=== PATIENT | male | born 1970 | race Caucasian/White ===

== ENCOUNTER 2017-01-20 19:24 | Emergency (ER) | payer BC, MEDICARE ==
[~2017-01-20 19:24] MED LIST: BETAMETHASONE D0.051 TP; CARVEDILOL3.125 MG PO; COLACE100 M1 PO; D-1000 185 MG-11 TAB PO; DILAUDID 2MG TAB2 MG PO; DIPROLENE TOP; ELIDEL1% TOP; FENTANYL T100 MCG/HR TD; FLONASE ALLERG9.9 ML; GOOD NEIGHBOR P1 T32 PO; INSULIN-HUMA100 U/ML SC; JUICE PLUS WIT240 ML SQ; K-DUR20 MEQ PO; LANTUS100 U/ML SQ; LASIX40 M1 PO; LEXAPRO 10MG10 MG PO; LISINOPRIL20 MG PO; LISINOPRIL30 MG PO; LYRICA 25MG CAP25 MG PO; MIRALAX17 GM PO; NIZORAL CREAM15 GM; NUCYNTA ER50 MG PO; PHENERGAN 25 TA25 MG PO; POTASSIUM CH2 MEQ/ML PO; PRAVASTATIN SOD40 MG PO; REGLAN 10MG10 MG/TAB PO; REVATIO20 MG PO; TYLENOL 325MG325 MG PO; VALIUM 5MG T5 MG/TAB PO; VALIUM5 M1 PO; VALIUM5 MG PO; XANAX0.5 MG PO; XANAX1 M1 PO; ZANTAC150 MG PO; ZESTRIL 20MG TA20 MG PO; ZYRTEC ALLERGY10 MG PO; ZYRTEC10 M3 PO; ZYRTEC10 MG PO
[2017-01-20] MEDS ORDERED: DILAUDID2 M1 PO (19:25)
[2017-01-20] MEDS ORDERED: ADVIL 200MG TA200 MG PO (19:25)
[2017-01-20] MEDS ORDERED: ROBAXIN500 MG PO (19:29)
[2017-01-20] MEDS ORDERED: NIZORAL CREAM15 GM TOP (19:29)
[2017-01-20] MEDS ORDERED: COZAAR 50MG50 MG/TAB PO (19:29)
[2017-01-20] MEDS ORDERED: PROTONIX TR40 M1 PO (19:30)
[2017-01-20] MEDS ORDERED: PANCRELIPASE PO (19:31)
[2017-01-20] MEDS ORDERED: REVATIO20 MG PO (19:32)
[2017-01-20] MEDS ORDERED: ALDACTONE25 M1 PO (19:32)
[2017-01-20] MEDS ORDERED: PHENERGAN 25 TA25 MG PO (19:32)
[2017-01-20] MEDS ORDERED: COUMADIN3 MG PO (19:33)
[2017-01-20] MEDS ORDERED: CHANTIX 1MG1 MG PO (19:33)
[2017-01-20] MEDS ORDERED: ORPHENADRINE C100 MG PO (21:57)
== END 2017-01-20 22:41 | disposition home or self-care (01) ==
LOC: ED 19:24
DX: M62.838 Other muscle spasm (principal); Z87.891 Personal history of nicotine dependence
CPT/HCPCS: J2270; J2360; J2550; J7030

== ENCOUNTER 2017-05-30 16:52 | Emergency (ER) | payer BC ==
[~2017-05-30] VITALS: Ht 188 cm; Wt 91.0 kg
[~2017-05-30 16:52] MED LIST changes: +ADVIL 200MG TA200 MG PO; +ALDACTONE25 M1 PO; +CHANTIX 1MG1 MG PO; +COUMADIN3 MG PO; +COZAAR 50MG50 MG/TAB PO; +DILAUDID2 M1 PO; +NIZORAL CREAM15 GM TOP; +ORPHENADRINE C100 MG PO; +PANCRELIPASE PO; +PROTONIX TR40 M1 PO; +ROBAXIN500 MG PO
[2017-05-30] MEDS ORDERED: COZAAR 50MG50 MG/TAB PO (17:16)
[2017-05-30] MEDS ORDERED: CEPHALEXIN500 M1 PO (19:39)
[2017-05-30] MEDS ORDERED: SEPTRA DS 8001 TAB PO (19:39)
[2017-05-30 20:12] VITALS: BP 167/88
== END 2017-05-30 20:12 | disposition home or self-care (01) ==
LOC: ED 16:52
DX: L03.116 Cellulitis of left lower limb (principal); E11.621 Type 2 diabetes mellitus with foot ulcer; L97.529 Non-pressure chronic ulcer of other part of left foot with unspecified severity; E11.42 Type 2 diabetes mellitus with diabetic polyneuropathy; Z79.4 Long term (current) use of insulin; Z79.01 Long term (current) use of anticoagulants

== ENCOUNTER → 2017-06-16 | Outpatient (CLI) | payer BC ==
[2017-05-30 20:12] VITALS: BP 167/88
[~2017-06-16] MED LIST changes: +BACTRIM DS TAB1 EACH PO; +CEFADROXIL500 MG PO; +CEPHALEXIN500 M1 PO; +SEPTRA DS 8001 TAB PO
== END ==
LOC: RAD 12:00
DX: L97.529 Non-pressure chronic ulcer of other part of left foot with unspecified severity (principal); L03.032 Cellulitis of left toe; Z89.422 Acquired absence of other left toe(s); M25.475 Effusion, left foot

== ENCOUNTER 2017-07-15 00:36 | Emergency (ER) | payer BC ==
[~2017-07-15] VITALS: Ht 185.4 cm; Wt 85.5 kg
[~2017-07-15 00:36] MED LIST changes: -BACTRIM DS TAB1 EACH PO; -CEFADROXIL500 MG PO
[2017-07-15] MEDS ORDERED: CEFADROXIL500 MG PO (00:53)
[2017-07-15] MEDS ORDERED: BACTRIM DS TAB1 EACH PO (05:36)
[2017-07-15 05:46] VITALS: BP 141/81
== END 2017-07-15 05:42 | disposition home or self-care (01) ==
LOC: ED 00:36
DX: D72.819 Decreased white blood cell count, unspecified (principal); E86.0 Dehydration; Z47.89 Encounter for other orthopedic aftercare; E10.9 Type 1 diabetes mellitus without complications; Z79.4 Long term (current) use of insulin; I10 Essential (primary) hypertension; E78.5 Hyperlipidemia, unspecified; F32.9 Major depressive disorder, single episode, unspecified; F17.200 Nicotine dependence, unspecified, uncomplicated; Z89.422 Acquired absence of other left toe(s); Z79.01 Long term (current) use of anticoagulants; Z86.19 Personal history of other infectious and parasitic diseases; K86.1 Other chronic pancreatitis; R11.0 Nausea
CPT/HCPCS: J2270; J2405; J7030

== ENCOUNTER 2017-07-25 23:00 | Emergency (ER) | payer BC ==
[~2017-07-25] VITALS: Ht 190.5 cm; Wt 85.5 kg
[~2017-07-25 23:00] MED LIST changes: +BACTRIM DS TAB1 EACH PO; +CEFADROXIL500 MG PO
[2017-07-26 04:40] VITALS: BP 130/64
== END 2017-07-26 04:40 | disposition home or self-care (01) ==
LOC: ED 23:00
DX: A04.7 Enterocolitis due to Clostridium difficile (principal); E86.9 Volume depletion, unspecified; E11.69 Type 2 diabetes mellitus with other specified complication; M86.8X7 Other osteomyelitis, ankle and foot; Z79.4 Long term (current) use of insulin; Z87.11 Personal history of peptic ulcer disease; Z90.81 Acquired absence of spleen
CPT/HCPCS: J2270; J3370; J7030; J7050

== ENCOUNTER 2017-07-26 18:04 | Outpatient (RCR) | payer BC ==
[~2017-07-26] VITALS: Ht 185.4 cm; Wt 85.5 kg
[2017-07-26 18:29] VITALS: BP 124/75
--- NOTE | 2017-07-26 18:49 | NUR ---
PT PLACED IN CDIFF PRECAUTIONS, GOWNS AND APPROPRIATE PPE PLACED OUTSIDE DOOR, BLEACH WIPES THAT "KILL CDIFF SPORES" PLACED OUTSIDE DOOR AND WILL THOROUGHLY CLEANSE PT ROOM ONCE PT IS DC'D HOME, PROVIDER AWARE THAT PATIENT HAS CDIFF AT THIS TIME
--- NOTE | 2017-07-26 18:59 | NUR ---
Pt's first dose of Vanco given in ER at 0400 this morning, will continue on an outpatient basis at 0600 & 1800 as ordered by
[2017-07-26 19:36] VITALS: BP 126/69
--- NOTE | 2017-07-26 19:38 | NUR ---
ELIZABETH BLAND, RN STATES THAT STATED HE ONLY WANTS PT ON IV VANCO UNTIL FRIDAY WHEN ORIGINAL DOCTOR PRESCRIBING PT MULTIPLE ANTIBIOTICS CAN BE REACHED AND PROVIDE FURTHER RECOMMENDATIONS FOR PATIENT CARE
[2017-07-27 06:35] VITALS: BP 135/78
--- NOTE | 2017-07-27 07:34 | NUR ---
IV ABX COMPLETE. PER DR THORNTON, 22G INT FLUSHED AND REMAINS TO L HAND. WRAPPED WITH COBAN FOR COMFORT. PT AMBULATES FROM FACILITY. ROOM 101 CLEANSED WITH CLOROX BY THIS RN THEN TERMINAL CLEAN BY HOUSEKEEPING.
[2017-07-27 07:36] VITALS: BP 112/70
[2017-07-27 18:27] VITALS: BP 156/95
[2017-07-27 20:10] VITALS: BP 137/83
[2017-07-28 06:20] VITALS: BP 122/67
[2017-07-28 07:40] VITALS: BP 129/78
[2017-07-28 18:48] VITALS: BP 147/84
--- NOTE | 2017-07-28 18:49 | NUR ---
Pt reports that he thinks he may get a PICC tomorrow. Reminded pt that we will need trough before am vanco dose - pt verbalizes understanding.
[2017-07-28 19:45] VITALS: BP 155/85
[2017-07-29 06:07] VITALS: BP 147/87
[2017-07-29 07:18] VITALS: BP 139/78
[2017-07-29 19:21] VITALS: BP 138/81
[2017-07-29 20:56] VITALS: BP 135/75
[2017-07-30 06:30] VITALS: BP 148/81
[2017-07-30 08:19] VITALS: BP 123/71
--- NOTE | 2017-07-30 08:28 | NUR ---
Dr. Roberts Nurse Ened[facility] contacted regarding patients need for PICC line placement and continuation of Vancomycin, she states the patient called her yesterday wanting these same things and that Dr. Singh is aware of request.
--- NOTE | 2017-07-30 20:18 | NUR ---
Pt arrives at this time to get IV removed, pt is starting PO Vanco instead of IV per
== END 2017-07-30 21:00 | disposition home or self-care (01) ==
LOC: AMSURD 18:04
PROVIDERS: Family Medicine
DX: A04.7 Enterocolitis due to Clostridium difficile (principal); A04.8 Other specified bacterial intestinal infections; E11.69 Type 2 diabetes mellitus with other specified complication; M86.172 Other acute osteomyelitis, left ankle and foot; Z51.81 Encounter for therapeutic drug level monitoring; Z79.2 Long term (current) use of antibiotics
CPT/HCPCS: J3370; J7050

== ENCOUNTER 2017-10-18 00:30 | Emergency (ER) | payer BC ==
[~2017-10-18] VITALS: Ht 188 cm; Wt 89.8 kg
[2017-10-18 01:54] LABS: BASO # 0.1 (0.02-0.10); EOS # 0.3 (0.04-0.40); EOS % 1.9 % (0.0-4.0); HEMATOCRIT 32.4 % (42.0-52.0); HEMOGLOBIN 10.8 g/dL (13.5-18.0); LYMPH# 3.1 (1.50-4.00); MEAN CELL VOLUME 88 fl (78-100); MEAN CORPUSCULAR HEMOGLOBIN 29 pg (27-31); MEAN CORPUSCULAR HGB CONC 33 g/dL (33-37); MEAN PLATELET VOLUME 10.5 fl (7.4-10.4); PLATELET COUNT 431 K/mm3 (130-400); RED BLOOD COUNT 3.67 M/mm3 (4.20-5.60); RED CELL DISTRIBUTION WIDTH 13.6 % (11.5-14.5); WHITE BLOOD COUNT 16.7 K/mm3 (4.8-10.8)
[2017-10-18 01:55] LABS: MONO # 1.7 (0.20-0.80); NEU # 11.3 (1.40-6.50)
[2017-10-18 01:59] LABS: ALBUMIN 3.7 g/dL (3.5-5.0); CALCIUM 9.1 mg/dL (8.4-10.2); POTASSIUM 3.7 mmol/L (3.6-5.0); TOTAL BILIRUBIN 0.6 mg/dL (0.2-1.3); TOTAL PROTEIN 7.5 g/dL (6.3-8.2)
[2017-10-18 03:08] LABS: URINE COLOR YELLOW
[2017-10-18 03:09] LABS: URINE APPEARANCE CLEAR; URINE BILIRUBIN NEGATIVE (NEGATIVE); URINE BLOOD TRACE (NEGATIVE); URINE GLUCOSE 50 mg/dL mg/dL (NEGATIVE); URINE KETONE NEGATIVE (NEGATIVE); URINE LEUKOCYTE ESTERASE TRACE (NEGATIVE); URINE NITRATE NEGATIVE (NEGATIVE); URINE PROTEIN(semi-quant) 3+ mg/dL (NEGATIVE); URINE UROBILINOGEN NORMAL (NORMAL)
[2017-10-18] MEDS ORDERED: MACROBID 100 M100 MG PO (04:19)
[2017-10-18 05:11] VITALS: BP 141/84
== END 2017-10-18 04:38 | disposition home or self-care (01) ==
LOC: ED 00:30
PROVIDERS: Family Medicine
DX: R53.81 Other malaise (principal); R51 Headache; N39.0 Urinary tract infection, site not specified; E11.9 Type 2 diabetes mellitus without complications; I10 Essential (primary) hypertension; J44.9 Chronic obstructive pulmonary disease, unspecified; Z87.11 Personal history of peptic ulcer disease; F17.200 Nicotine dependence, unspecified, uncomplicated; Z79.01 Long term (current) use of anticoagulants; Z79.4 Long term (current) use of insulin; Z87.19 Personal history of other diseases of the digestive system; L84 Corns and callosities
CPT/HCPCS: J2270; J7030

== ENCOUNTER 2018-01-06 22:53 | Emergency (ER) | payer BC ==
[~2018-01-06 22:53] MED LIST changes: +MACROBID 100 M100 MG PO
[2018-01-07 00:08] VITALS: BP 140/70
== END 2018-01-07 00:08 | disposition home or self-care (01) ==
LOC: ED 22:53
DX: Z47.81 Encounter for orthopedic aftercare following surgical amputation (principal); Z89.421 Acquired absence of other right toe(s); E11.9 Type 2 diabetes mellitus without complications; Z86.31 Personal history of diabetic foot ulcer; Z79.4 Long term (current) use of insulin; F32.9 Major depressive disorder, single episode, unspecified; Z88.5 Allergy status to narcotic agent; Z79.01 Long term (current) use of anticoagulants; Z87.11 Personal history of peptic ulcer disease

== ENCOUNTER 2018-03-20 09:00 | Outpatient (RCR) | payer BC | END 2018-03-20 09:30 | disposition home or self-care (01) | LOC: OT 09:00 | DX: R25.1 Tremor, unspecified (principal) ==

== ENCOUNTER 2018-05-06 18:33 | Outpatient (RCR) | payer BC ==
[~2018-05-06] VITALS: Ht 188 cm; Wt 83.6 kg
[2018-05-06] MEDS ORDERED: AMBIEN5 M1 PO (18:46)
[2018-05-06 19:34] VITALS: BP 124/80
[2018-05-09] MEDS ORDERED: ZOFRAN ODT4 MG PO (01:02)
[2018-05-09] MEDS ORDERED: DILAUDID2 M1 PO (01:02)
[2018-05-20 19:58] VITALS: BP 138/84
[2018-05-26 20:00] VITALS: BP 125/75
[2018-06-03 22:05] VITALS: BP 133/72
[2018-06-10 21:30] VITALS: BP 143/80
[2018-06-25 21:00] VITALS: BP 146/86
--- NOTE | 2018-06-25 21:05 | NUR ---
PICC LINE REMOVED WITHOUT DIFFICULTY, PRESSURE HELD TO SITE FOR 5 MINUTES BY NURSE, PRESSURE DRESSING APPLIED WITH 4X4 GUAZE AND COBAN, PATIENT INSTRUCTED TO LEAVE DRESSING IN PLACE FOR 24 HOURS, TO LOOSEN IT IF NUMBNESS OR DISCOLORATION OCCUR TO DISTAL ARM, PATIENT VERBALIZES UNDERSTANDING OF ALL INSTRUCTIONS, PATIENT AMBULATES OUT WITHOUT DIFFICULTY,
== END 2018-06-25 22:00 | disposition home or self-care (01) ==
LOC: AMSURD 18:33
DX: M86.8X7 Other osteomyelitis, ankle and foot (principal); B95.61 Methicillin susceptible Staphylococcus aureus infection as the cause of diseases classified elsewhere; Z45.2 Encounter for adjustment and management of vascular access device; Z95.9 Presence of cardiac and vascular implant and graft, unspecified

== ENCOUNTER 2018-05-08 22:19 | Emergency (ER) | payer BC ==
[~2018-05-08] VITALS: Ht 188 cm; Wt 80.0 kg
[~2018-05-08 22:19] MED LIST changes: +AMBIEN5 M1 PO
[2018-05-08 23:56] LABS: HEMATOCRIT 30.7 % (42.0-52.0); HEMOGLOBIN 9.8 g/dL (13.5-18.0); MEAN CELL VOLUME 88 fl (78-100); MEAN CORPUSCULAR HEMOGLOBIN 28 pg (27-31); MEAN CORPUSCULAR HGB CONC 32 g/dL (33-37); MEAN PLATELET VOLUME 9.8 fl (7.4-10.4); RED CELL DISTRIBUTION WIDTH 14.1 % (11.5-14.5); WHITE BLOOD COUNT 13.6 K/mm3 (4.8-10.8)
[2018-05-08 23:57] LABS: PLATELET COUNT 510 K/mm3 (130-400)
[2018-05-09 00:07] LABS: BUN/CREATININE RATIO 14.8 (6.0-26.0); CALCIUM 8.9 mg/dL (8.4-10.2); POTASSIUM 4.2 mmol/L (3.6-5.0)
[2018-05-09 00:13] LABS: LYMPHOCYTE 25 % (20-51); MONOCYTE 7 % (3-10); NEUTROPHILS 64 % (42-75)
[2018-05-09 00:14] LABS: PROTHROMBIN TIME 33.1 SECONDS (9.0-12.0)
[2018-05-09] MEDS ORDERED: ZOFRAN ODT4 MG PO (01:02)
[2018-05-09] MEDS ORDERED: DILAUDID2 M1 PO (01:02)
[2018-05-09 01:35] VITALS: BP 156/86
== END 2018-05-09 01:35 | disposition home or self-care (01) ==
LOC: ED 22:19
PROVIDERS: Family Medicine
DX: M84.374A Stress fracture, right foot, initial encounter for fracture (principal); E11.69 Type 2 diabetes mellitus with other specified complication; Z89.421 Acquired absence of other right toe(s); Z89.422 Acquired absence of other left toe(s); M86.8X7 Other osteomyelitis, ankle and foot; Z79.4 Long term (current) use of insulin; Z79.899 Other long term (current) drug therapy

== ENCOUNTER 2019-03-17 22:35 | Emergency (ER) | payer BC ==
[~2019-03-17 22:35] MED LIST changes: +XANAX 1MG1 MG PO; -XANAX1 M1 PO; +ZOFRAN ODT4 MG PO
[2019-03-17] MEDS ORDERED: ELIQUIS5 MG PO (23:40)
[2019-03-17] MEDS ORDERED: FENOFIBRATE145 MG PO (23:41)
[2019-03-17] MEDS ORDERED: REVATIO20 MG PO (23:46)
[2019-03-17] MEDS ORDERED: CHANTIX 1MG1 MG PO (23:47)
[2019-03-17 23:48] LABS: BASO # 0.1 (0.02-0.10); EOS # 0.4 (0.04-0.40); HEMATOCRIT 34.2 % (42.0-52.0); HEMOGLOBIN 10.8 g/dL (13.5-18.0); LYMPH# 3.6 (1.50-4.00); MEAN CELL VOLUME 90 fl (78-100); MEAN CORPUSCULAR HEMOGLOBIN 29 pg (27-31); MEAN CORPUSCULAR HGB CONC 32 g/dL (33-37); MEAN PLATELET VOLUME 11.2 fl (7.4-10.4); MONO # 1.4 (0.20-0.80); NEU # 6.8 (1.40-6.50); PLATELET COUNT 414 K/mm3 (130-400); RED BLOOD COUNT 3.79 M/mm3 (4.20-5.60); RED CELL DISTRIBUTION WIDTH 15.2 % (11.5-14.5); WHITE BLOOD COUNT 12.3 K/mm3 (4.8-10.8)
[2019-03-17] MEDS ORDERED: ATIVAN1 M1 PO (23:55)
[2019-03-18 00:13] LABS: ALBUMIN 3.2 g/dL (3.5-5.0); CALCIUM 8.7 mg/dL (8.4-10.2); POTASSIUM 3.8 mmol/L (3.6-5.0); TOTAL BILIRUBIN 0.4 mg/dL (0.2-1.3); TOTAL PROTEIN 6.9 g/dL (6.3-8.2)
[2019-03-18 00:44] LABS: URINE APPEARANCE CLEAR; URINE COLOR YELLOW
[2019-03-18 00:45] LABS: URINE BILIRUBIN NEGATIVE (NEGATIVE); URINE BLOOD 50 ery/uL (NEGATIVE); URINE KETONE NEGATIVE (NEGATIVE); URINE LEUKOCYTE ESTERASE NEGATIVE (NEGATIVE); URINE MUCUS PRESENT (NOT PRESENT); URINE NITRATE NEGATIVE (NEGATIVE); URINE PROTEIN(semi-quant) NEGATIVE (NEGATIVE); URINE UROBILINOGEN NORMAL (NORMAL)
[2019-03-18] MEDS ORDERED: AUGMENTIN 875-1 EAC1 PO (02:45)
[2019-03-18] MEDS ORDERED: CIPRODEX 0.3%-7.5 ML OT (02:45)
[2019-03-18 02:49] VITALS: BP 152/90
== END 2019-03-18 02:54 | disposition home or self-care (01) ==
LOC: ED 22:35
PROVIDERS: Physician Assistant
DX: H66.91 Otitis media, unspecified, right ear (principal); H60.91 Unspecified otitis externa, right ear; R11.2 Nausea with vomiting, unspecified; G89.29 Other chronic pain; R10.9 Unspecified abdominal pain; E10.9 Type 1 diabetes mellitus without complications; K25.9 Gastric ulcer, unspecified as acute or chronic, without hemorrhage or perforation; K86.1 Other chronic pancreatitis; F17.210 Nicotine dependence, cigarettes, uncomplicated; Z88.1 Allergy status to other antibiotic agents; Z88.5 Allergy status to narcotic agent; Z88.6 Allergy status to analgesic agent; Z90.49 Acquired absence of other specified parts of digestive tract; Z86.718 Personal history of other venous thrombosis and embolism
CPT/HCPCS: J1170; J2270; J2405; J7030; Q9967

== ENCOUNTER 2019-06-01 20:09 | Emergency (ER) | payer BC ==
[~2019-06-01 20:09] MED LIST changes: +ATIVAN1 M1 PO; +AUGMENTIN 875-1 EAC1 PO; +CIPRODEX 0.3%-7.5 ML OT; +ELIQUIS5 MG PO; +FENOFIBRATE145 MG PO
[2019-06-01] MEDS ORDERED: MORGIDOX 1X100100 MG PO (20:44)
[2019-06-01 21:34] LABS: ALBUMIN 2.7 g/dL (3.5-5.0); BASO # 0.1 (0.02-0.10); EOS # 0.3 (0.04-0.40); HEMATOCRIT 33.8 % (42.0-52.0); HEMOGLOBIN 10.7 g/dL (13.5-18.0); LYMPH# 2.9 (1.50-4.00); MEAN CELL VOLUME 90 fl (78-100); MEAN CORPUSCULAR HEMOGLOBIN 29 pg (27-31); MEAN CORPUSCULAR HGB CONC 32 g/dL (33-37); MEAN PLATELET VOLUME 11.2 fl (7.4-10.4); MONO # 1.1 (0.20-0.80); NEU # 6.3 (1.40-6.50); PLATELET COUNT 448 K/mm3 (130-400); RED BLOOD COUNT 3.76 M/mm3 (4.20-5.60); RED CELL DISTRIBUTION WIDTH 14.8 % (11.5-14.5); WHITE BLOOD COUNT 10.8 K/mm3 (4.8-10.8)
[2019-06-01 21:35] LABS: POTASSIUM 4.2 mmol/L (3.5-5.1)
[2019-06-01 21:36] LABS: CALCIUM 8.4 mg/dL (8.3-10.5)
[2019-06-01 21:37] LABS: TOTAL PROTEIN 5.7 g/dL (6.4-8.3)
[2019-06-01 21:39] LABS: TOTAL BILIRUBIN 0.3 mg/dL (0.2-1.2)
[2019-06-01 21:55] LABS: LIPASE 30 U/L (8-78)
[2019-06-02 00:07] VITALS: BP 148/87
== END 2019-06-02 00:14 | disposition home or self-care (01) ==
LOC: ED 20:09
PROVIDERS: Nurse Practitioner Family
DX: E10.65 Type 1 diabetes mellitus with hyperglycemia (principal); M54.12 Radiculopathy, cervical region; M25.512 Pain in left shoulder; E78.5 Hyperlipidemia, unspecified; K25.9 Gastric ulcer, unspecified as acute or chronic, without hemorrhage or perforation; F17.210 Nicotine dependence, cigarettes, uncomplicated; Z86.718 Personal history of other venous thrombosis and embolism; Z98.890 Other specified postprocedural states; Z90.81 Acquired absence of spleen; Z79.01 Long term (current) use of anticoagulants; Z79.4 Long term (current) use of insulin
CPT/HCPCS: J1170

== ENCOUNTER 2019-07-26 13:39 | Emergency (ER) | payer BC ==
[~2019-07-26] VITALS: Ht 188 cm; Wt 97.3 kg
[~2019-07-26 13:39] MED LIST changes: +MORGIDOX 1X100100 MG PO
[2019-07-26 14:57] LABS: HEMATOCRIT 35.7 % (42.0-52.0); HEMOGLOBIN 11.8 g/dL (13.5-18.0); MEAN CELL VOLUME 86 fl (78-100); MEAN CORPUSCULAR HEMOGLOBIN 29 pg (27-31); MEAN CORPUSCULAR HGB CONC 33 g/dL (33-37); MEAN PLATELET VOLUME 10.8 fl (7.4-10.4); PLATELET COUNT 455 K/mm3 (130-400); RED BLOOD COUNT 4.13 M/mm3 (4.20-5.60); RED CELL DISTRIBUTION WIDTH 14.4 % (11.5-14.5); WHITE BLOOD COUNT 15.1 K/mm3 (4.8-10.8)
[2019-07-26 15:06] LABS: ALBUMIN 3.1 g/dL (3.5-5.0); POTASSIUM 4.9 mmol/L (3.5-5.1)
[2019-07-26 15:08] LABS: CALCIUM 8.5 mg/dL (8.3-10.5)
[2019-07-26 15:09] LABS: TOTAL PROTEIN 7.1 g/dL (6.4-8.3)
[2019-07-26 15:11] LABS: TOTAL BILIRUBIN 0.7 mg/dL (0.2-1.2)
[2019-07-26 15:17] LABS: BAND 4 % (0-10); LYMPHOCYTE 7 % (20-51); MONOCYTE 4 % (3-10); NEUTROPHILS 85 % (42-75)
[2019-07-26 19:07] LABS: URINE APPEARANCE CLEAR; URINE BILIRUBIN NEGATIVE (NEGATIVE); URINE BLOOD TRACE (NEGATIVE); URINE COLOR YELLOW; URINE KETONE NEGATIVE (NEGATIVE); URINE LEUKOCYTE ESTERASE NEGATIVE (NEGATIVE); URINE NITRATE NEGATIVE (NEGATIVE); URINE PROTEIN(semi-quant) 2+ mg/dL (NEGATIVE); URINE UROBILINOGEN NORMAL (NORMAL)
[2019-07-26 19:08] LABS: URINE WBC 0-1 /hpf (0-3)
[2019-07-26 19:32] LABS: HEMOGLOBIN 11.9 g/dL (13.5-18.0); MEAN CELL VOLUME 87 fl (78-100); MEAN CORPUSCULAR HEMOGLOBIN 29 pg (27-31); MEAN CORPUSCULAR HGB CONC 33 g/dL (33-37); MEAN PLATELET VOLUME 10.7 fl (7.4-10.4); PLATELET COUNT 419 K/mm3 (130-400); RED BLOOD COUNT 4.15 M/mm3 (4.20-5.60); RED CELL DISTRIBUTION WIDTH 14.5 % (11.5-14.5)
[2019-07-26 19:36] LABS: ALBUMIN 2.9 g/dL (3.5-5.0); POTASSIUM 4.4 mmol/L (3.5-5.1)
[2019-07-26 19:38] LABS: CALCIUM 7.9 mg/dL (8.3-10.5)
[2019-07-26 19:39] LABS: TOTAL PROTEIN 6.7 g/dL (6.4-8.3)
[2019-07-26 19:41] LABS: TOTAL BILIRUBIN 0.8 mg/dL (0.2-1.2)
[2019-07-26 19:48] LABS: BAND 2 % (0-10); LYMPHOCYTE 10 % (20-51); MONOCYTE 6 % (3-10); NEUTROPHILS 82 % (42-75)
[2019-07-26] MEDS ORDERED: LEVAQUIN 750MG750 M1 PO (20:14)
[2019-07-26 20:18] VITALS: BP 127/61
== END 2019-07-26 20:45 | disposition home or self-care (01) ==
LOC: ED 13:39
PROVIDERS: Nurse Practitioner
DX: R11.2 Nausea with vomiting, unspecified (principal); R19.7 Diarrhea, unspecified; R50.9 Fever, unspecified; R10.9 Unspecified abdominal pain; E10.9 Type 1 diabetes mellitus without complications; I10 Essential (primary) hypertension; F32.9 Major depressive disorder, single episode, unspecified; K21.9 Gastro-esophageal reflux disease without esophagitis; Z90.49 Acquired absence of other specified parts of digestive tract; Z98.890 Other specified postprocedural states; Z90.81 Acquired absence of spleen; Z87.19 Personal history of other diseases of the digestive system; Z87.891 Personal history of nicotine dependence; Z79.01 Long term (current) use of anticoagulants
CPT/HCPCS: J1815; J2270; J2550; J7030; Q9967

== ENCOUNTER 2019-11-26 01:16 | Observation (INO) | payer BC ==
[2019-11-26] VITALS (8 sets, daily range): BP systolic 112–131; BP diastolic 63–81
[~2019-11-26] VITALS: Ht 190.5 cm; Wt 98.0 kg
[~2019-11-26 01:16] MED LIST changes: +LEVAQUIN 750MG750 M1 PO
[2019-11-26 02:25] LABS: BASO # 0.1 (0.02-0.10); EOS # 0.3 (0.04-0.40); EOS % 2.2 % (0.0-4.0); HEMATOCRIT 40.3 % (42.0-52.0); HEMOGLOBIN 13.1 g/dL (13.5-18.0); LYMPH# 2.5 (1.50-4.00); MEAN CELL VOLUME 86 fl (78-100); MEAN CORPUSCULAR HEMOGLOBIN 28 pg (27-31); MEAN CORPUSCULAR HGB CONC 33 g/dL (33-37); MEAN PLATELET VOLUME 10.5 fl (7.4-10.4); MONO # 1.4 (0.20-0.80); NEU # 7.6 (1.40-6.50); PLATELET COUNT 404 K/mm3 (130-400); RED BLOOD COUNT 4.71 M/mm3 (4.20-5.60); RED CELL DISTRIBUTION WIDTH 14.3 % (11.5-14.5); WHITE BLOOD COUNT 12.1 K/mm3 (4.8-10.8)
[2019-11-26 02:31] LABS: ALBUMIN 3.6 g/dL (3.5-5.0)
[2019-11-26 02:32] LABS: POTASSIUM 3.6 mmol/L (3.5-5.1); SODIUM 135 mmol/L (136-145)
[2019-11-26 02:33] LABS: CALCIUM 10.8 mg/dL (8.3-10.5)
[2019-11-26 02:34] LABS: GLUCOSE 194 mg/dL (75-110); TOTAL PROTEIN 8.1 g/dL (6.4-8.3)
[2019-11-26 02:35] LABS: CARBON DIOXIDE 24 mmol/L (22-29)
[2019-11-26 02:36] LABS: TOTAL BILIRUBIN 0.3 mg/dL (0.2-1.2)
[2019-11-26 02:39] LABS: AST-SGOT 33 U/L (5-34)
[2019-11-26 02:41] LABS: ALT/SGPT 28 U/L (0-55); LIPASE 36 U/L (8-78)
[2019-11-26 02:48] LABS: TROPONIN-I < 0.03 ng/mL (<0.030)
[2019-11-26] MEDS ORDERED: ELIQUIS2.5 MG PO (03:01)
[2019-11-26] MEDS ORDERED: BUMETANIDE2 M1 PO (03:02)
[2019-11-26] MEDS ORDERED: CHANTIX START M1 TAB PO (03:03)
[2019-11-26] MEDS ORDERED: CIPRODEX 0.3%-7.5 ML OT (03:04)
[2019-11-26] MEDS ORDERED: HYDROXYZINE HCL25 M1 PO (03:05)
[2019-11-26] MEDS ORDERED: MAGNESIUM OXID200 MG PO (03:06)
[2019-11-26] MEDS ORDERED: REVATIO20 MG PO (03:07)
[2019-11-26 05:52] LABS: MAGNESIUM 1.99 mg/dL (1.60-2.60)
[2019-11-26 06:10] LABS: TROPONIN-I < 0.03 ng/mL (<0.030)
[2019-11-26 06:12] LABS: URINE APPEARANCE CLEAR; URINE BILIRUBIN NEGATIVE (NEGATIVE); URINE COLOR YELLOW; URINE KETONE NEGATIVE (NEGATIVE); URINE LEUKOCYTE ESTERASE NEGATIVE (NEGATIVE); URINE NITRATE NEGATIVE (NEGATIVE); URINE PROTEIN(semi-quant) 3+ mg/dL (NEGATIVE); URINE UROBILINOGEN NORMAL (NORMAL)
[2019-11-26 06:13] LABS: URINE MUCUS PRESENT (NOT PRESENT)
[2019-11-26 13:19] LABS: HEMATOCRIT 33.7 % (42.0-52.0); HEMOGLOBIN 10.8 g/dL (13.5-18.0); MEAN CELL VOLUME 88 fl (78-100); MEAN CORPUSCULAR HEMOGLOBIN 28 pg (27-31); MEAN CORPUSCULAR HGB CONC 32 g/dL (33-37); MEAN PLATELET VOLUME 10.6 fl (7.4-10.4); PLATELET COUNT 410 K/mm3 (130-400); RED BLOOD COUNT 3.85 M/mm3 (4.20-5.60); RED CELL DISTRIBUTION WIDTH 14.4 % (11.5-14.5); WHITE BLOOD COUNT 12.1 K/mm3 (4.8-10.8)
[2019-11-26 13:26] LABS: POTASSIUM 4.6 mmol/L (3.5-5.1)
[2019-11-26 13:28] LABS: CALCIUM 8.7 mg/dL (8.3-10.5); LYMPHOCYTE 28 % (20-51); MONOCYTE 9 % (3-10); NEUTROPHILS 60 % (42-75)
[2019-11-27 01:38] VITALS: BP 125/60
[2019-11-27 05:43] VITALS: BP 120/62
[2019-11-27 08:05] LABS: POTASSIUM 4.1 mmol/L (3.5-5.1)
[2019-11-27 08:06] LABS: CALCIUM 8.4 mg/dL (8.3-10.5)
[2019-11-27 10:05] VITALS: BP 116/65
[2019-11-27 14:24] VITALS: BP 103/60
== END 2019-11-27 15:15 | disposition home or self-care (01) ==
LOC: ED 01:16 → MED/SURG 04:07
PROVIDERS: Nurse Practitioner Primary Care; ADMIT Nurse Practitioner Family
DX: R11.2 Nausea with vomiting, unspecified (principal); R53.81 Other malaise; E86.9 Volume depletion, unspecified; E10.22 Type 1 diabetes mellitus with diabetic chronic kidney disease; I12.9 Hypertensive chronic kidney disease with stage 1 through stage 4 chronic kidney disease, or unspecified chronic kidney disease; N18.9 Chronic kidney disease, unspecified; N17.9 Acute kidney failure, unspecified; Z96.41 Presence of insulin pump (external) (internal); K86.1 Other chronic pancreatitis; Z79.01 Long term (current) use of anticoagulants; Z79.899 Other long term (current) drug therapy; E78.5 Hyperlipidemia, unspecified; F41.9 Anxiety disorder, unspecified; F32.9 Major depressive disorder, single episode, unspecified; G89.29 Other chronic pain
CPT/HCPCS: G0378; J1170; J1815; J1956; J2405; J2550; J7030; Q0177

== ENCOUNTER → 2019-12-02 | Outpatient (CLI) | payer BC ==
[2019-11-27 14:24] VITALS: BP 103/60
[~2019-12-02] MED LIST changes: +BUMETANIDE2 M1 PO; +CHANTIX START M1 TAB PO; +ELIQUIS2.5 MG PO; +HYDROXYZINE HCL25 M1 PO; +MAGNESIUM OXID200 MG PO
== END ==
LOC: RAD 08:49
DX: R14.0 Abdominal distension (gaseous) (principal); R18.8 Other ascites

== ENCOUNTER 2019-12-17 15:42 | Emergency (ER) | payer BC ==
[2019-12-17 16:18] LABS: HEMATOCRIT 37.4 % (42.0-52.0); MEAN CELL VOLUME 88 fl (78-100); MEAN CORPUSCULAR HEMOGLOBIN 28 pg (27-31); MEAN CORPUSCULAR HGB CONC 32 g/dL (33-37); MEAN PLATELET VOLUME 10.3 fl (7.4-10.4); RED BLOOD COUNT 4.26 M/mm3 (4.20-5.60); RED CELL DISTRIBUTION WIDTH 14.6 % (11.5-14.5)
[2019-12-17 16:20] LABS: PLATELET COUNT 522 K/mm3 (130-400); WHITE BLOOD COUNT 20.9 K/mm3 (4.8-10.8)
[2019-12-17 16:30] LABS: ALBUMIN 3.2 g/dL (3.5-5.0); POTASSIUM 4.4 mmol/L (3.5-5.1)
[2019-12-17 16:31] LABS: CALCIUM 9.7 mg/dL (8.3-10.5); LYMPHOCYTE 13 % (20-51); MONOCYTE 10 % (3-10); NEUTROPHILS 75 % (42-75)
[2019-12-17 16:33] LABS: TOTAL PROTEIN 7.3 g/dL (6.4-8.3)
[2019-12-17 16:34] LABS: TOTAL BILIRUBIN 0.3 mg/dL (0.2-1.2)
[2019-12-17 17:39] VITALS: BP 157/89
== END 2019-12-17 17:39 | disposition home or self-care (01) ==
LOC: ED 15:42
PROVIDERS: Nurse Practitioner Primary Care
DX: I12.9 Hypertensive chronic kidney disease with stage 1 through stage 4 chronic kidney disease, or unspecified chronic kidney disease (principal); E10.22 Type 1 diabetes mellitus with diabetic chronic kidney disease; N18.9 Chronic kidney disease, unspecified

== ENCOUNTER 2021-05-26 22:38 | Emergency (ER) | payer BC ==
[2021-05-26 23:16] LABS: HEMATOCRIT 36.8 % (42.0-52.0); HEMOGLOBIN 11.5 g/dL (13.5-18.0); MEAN CELL VOLUME 95 fl (78-100); MEAN CORPUSCULAR HEMOGLOBIN 30 pg (27-31); MEAN CORPUSCULAR HGB CONC 31 g/dL (33-37); MEAN PLATELET VOLUME 9.7 fl (7.4-10.4); PLATELET COUNT 494 K/mm3 (130-400); RED BLOOD COUNT 3.86 M/mm3 (4.20-5.60); RED CELL DISTRIBUTION WIDTH 19.2 % (11.5-14.5); WHITE BLOOD COUNT 15.3 K/mm3 (4.8-10.8)
[2021-05-26 23:20] LABS: BAND 2 % (0-10); LYMPHOCYTE 35 % (20-51); MONOCYTE 4 % (3-10); NEUTROPHILS 55 % (42-75)
[2021-05-26 23:21] LABS: ALBUMIN 3.4 g/dL (3.5-5.0)
[2021-05-26 23:23] LABS: CALCIUM 9.6 mg/dL (8.3-10.5)
[2021-05-26 23:24] LABS: TOTAL PROTEIN 7.5 g/dL (6.4-8.3)
[2021-05-26 23:26] LABS: TOTAL BILIRUBIN 0.4 mg/dL (0.2-1.2)
[2021-05-26 23:35] LABS: POTASSIUM 4.4 mmol/L (3.5-5.1)
[2021-05-26] MEDS ORDERED: NOVOLOG FLEX100 U/ML SQ (23:50)
[2021-05-26] MEDS ORDERED: PROAIR HFA0.09 MG/AC IH (23:50)
[2021-05-26] MEDS ORDERED: FENTANYL1 EAC3 TD (23:50)
[2021-05-26] MEDS ORDERED: HUMULIN R500 UNIT/1 SQ (23:50)
[2021-05-27 01:11] VITALS: BP 152/68
== END 2021-05-27 01:20 | disposition home or self-care (01) ==
LOC: ED 22:38
PROVIDERS: Family Medicine
DX: E10.649 Type 1 diabetes mellitus with hypoglycemia without coma (principal); E88.81 Metabolic syndrome and other insulin resistance; F17.200 Nicotine dependence, unspecified, uncomplicated; Z88.6 Allergy status to analgesic agent; Z79.4 Long term (current) use of insulin

== ENCOUNTER 2021-08-27 17:25 | Emergency (ER) | payer BC ==
[~2021-08-27] VITALS: Ht 188 cm; Wt 100.9 kg
[~2021-08-27 17:25] MED LIST changes: +FENTANYL1 EAC3 TD; +HUMULIN R500 UNIT/1 SQ; +NOVOLOG FLEX100 U/ML SQ; +PROAIR HFA0.09 MG/AC IH
[2021-08-27 18:46] LABS: ALBUMIN 3.4 g/dL (3.5-5.0); BASO # 0.13 (0.02-0.10); EOS # 0.42 (0.04-0.40); EOS % 3.3 % (0.0-4.0); HEMATOCRIT 29.4 % (42.0-52.0); HEMOGLOBIN 8.8 g/dL (13.5-18.0); MEAN CELL VOLUME 94 fl (78-100); MEAN CORPUSCULAR HEMOGLOBIN 28 pg (27-31); MEAN CORPUSCULAR HGB CONC 30 g/dL (33-37); MEAN PLATELET VOLUME 9.6 fl (7.4-10.4); MONO # 1.12 (0.20-0.80); NEU # 7.38 (1.40-6.50); RED BLOOD COUNT 3.12 M/mm3 (4.20-5.60); RED CELL DISTRIBUTION WIDTH 17.2 % (11.5-14.5); WHITE BLOOD COUNT 12.6 K/mm3 (4.8-10.8)
[2021-08-27 18:48] LABS: CALCIUM 10.1 mg/dL (8.3-10.5)
[2021-08-27 18:51] LABS: TOTAL BILIRUBIN 0.3 mg/dL (0.2-1.2)
[2021-08-27 19:06] LABS: PLATELET COUNT 550 K/mm3 (130-400)
[2021-08-27 19:43] LABS: URINE APPEARANCE CLEAR; URINE BILIRUBIN NEGATIVE (NEGATIVE); URINE BLOOD NEGATIVE (NEGATIVE); URINE COLOR YELLOW; URINE GLUCOSE NEGATIVE (NEGATIVE); URINE KETONE NEGATIVE (NEGATIVE); URINE LEUKOCYTE ESTERASE NEGATIVE (NEGATIVE); URINE MUCUS PRESENT (NOT PRESENT); URINE NITRATE NEGATIVE (NEGATIVE); URINE PROTEIN(semi-quant) 1+ mg/dL (NEGATIVE); URINE UROBILINOGEN NORMAL (NORMAL); URINE WBC 0-1 /hpf (0-3)
[2021-08-27 22:18] VITALS: BP 141/82
== END 2021-08-27 22:18 | disposition home or self-care (01) ==
LOC: ED 17:25
PROVIDERS: Nurse Practitioner
DX: B34.9 Viral infection, unspecified (principal); E11.9 Type 2 diabetes mellitus without complications; Z90.49 Acquired absence of other specified parts of digestive tract; Z79.4 Long term (current) use of insulin; Z20.822 Contact with and (suspected) exposure to COVID-19
CPT/HCPCS: J1170; J2405; J7040

== ENCOUNTER 2022-08-21 22:40 | Emergency (ER) | payer BC ==
[~2022-08-21] VITALS: Ht 180.3 cm; Wt 100.9 kg
[2022-08-21 23:21] LABS: EOS % 1.4 % (0.0-4.0); HEMATOCRIT 41.8 % (42.0-52.0); HEMOGLOBIN 14.3 g/dL (13.5-18.0); LYMPH# 2.72 K/mm3 (1.50-4.00); MEAN CELL VOLUME 95 fl (78-100); MEAN CORPUSCULAR HEMOGLOBIN 33 pg (27-31); MEAN CORPUSCULAR HGB CONC 34 g/dL (33-37); MEAN PLATELET VOLUME 10.9 fl (7.4-10.4); MONO # 1.06 K/mm3 (0.20-0.80); NEU # 10.39 K/mm3 (1.40-6.50); PLATELET COUNT 322 K/mm3 (130-400); RED BLOOD COUNT 4.39 M/mm3 (4.20-5.60); RED CELL DISTRIBUTION WIDTH 12.6 % (11.5-14.5); WHITE BLOOD COUNT 14.6 K/mm3 (4.8-10.8)
[2022-08-21 23:25] LABS: ALBUMIN 3.3 g/dL (3.5-5.0); POTASSIUM 4.4 mmol/L (3.5-5.1); SODIUM 128 mmol/L (136-145)
[2022-08-21 23:26] LABS: CALCIUM 9.7 mg/dL (8.3-10.5)
[2022-08-21 23:27] LABS: TOTAL PROTEIN 7.1 g/dL (6.4-8.3)
[2022-08-21 23:28] LABS: CARBON DIOXIDE 20 mmol/L (22-29)
[2022-08-21 23:29] LABS: TOTAL BILIRUBIN 0.5 mg/dL (0.2-1.2)
[2022-08-21 23:32] LABS: AST-SGOT 24 U/L (5-34)
[2022-08-21 23:33] LABS: GLUCOSE 664 mg/dL (75-110)
[2022-08-21 23:34] LABS: ALT/SGPT 38 U/L (0-55)
[2022-08-21 23:35] LABS: LIPASE 66 U/L (8-78)
[2022-08-21 23:38] LABS: TROPONIN-I < 0.030 ng/mL (<0.030)
[2022-08-22 00:06] LABS: D-DIMER 1.53 mg/L FEU (0.15-0.50)
[2022-08-22 00:54] LABS: URINE APPEARANCE CLEAR; URINE COLOR YELLOW; URINE PROTEIN(semi-quant) 3+ (NEGATIVE)
[2022-08-22 00:55] LABS: URINE BILIRUBIN NEGATIVE (NEGATIVE); URINE BLOOD TRACE (NEGATIVE); URINE KETONE NEGATIVE (NEGATIVE); URINE LEUKOCYTE ESTERASE NEGATIVE (NEGATIVE); URINE NITRATE NEGATIVE (NEGATIVE); URINE UROBILINOGEN NORMAL (NORMAL); URINE WBC 0-1 /hpf (0-3)
[2022-08-22 02:20] VITALS: BP 150/99
== END 2022-08-22 02:20 | disposition home or self-care (01) ==
LOC: ED 22:40
PROVIDERS: Physician Assistant
DX: A41.9 Sepsis, unspecified organism (principal); R65.20 Severe sepsis without septic shock; E10.65 Type 1 diabetes mellitus with hyperglycemia; E10.22 Type 1 diabetes mellitus with diabetic chronic kidney disease; I12.9 Hypertensive chronic kidney disease with stage 1 through stage 4 chronic kidney disease, or unspecified chronic kidney disease; N18.9 Chronic kidney disease, unspecified; K86.1 Other chronic pancreatitis; I88.0 Nonspecific mesenteric lymphadenitis; R07.89 Other chest pain; Z88.5 Allergy status to narcotic agent; Z90.49 Acquired absence of other specified parts of digestive tract; Z20.822 Contact with and (suspected) exposure to COVID-19
CPT/HCPCS: J2270; J2405; J2543; J3010; J7030

== ENCOUNTER 2023-08-01 08:34 | Emergency (ER) | payer BC ==
[~2023-08-01] VITALS: Wt 113.6 kg
[2023-08-01 09:04] LABS: HEMATOCRIT 39.4 % (42.0-52.0); HEMOGLOBIN 12.3 g/dL (13.5-18.0); MEAN CELL VOLUME 99 fl (78-100); MEAN CORPUSCULAR HEMOGLOBIN 31 pg (27-31); MEAN CORPUSCULAR HGB CONC 31 g/dL (33-37); MEAN PLATELET VOLUME 10.9 fl (7.4-10.4); PLATELET COUNT 252 K/mm3 (130-400); RED BLOOD COUNT 3.98 M/mm3 (4.20-5.60); RED CELL DISTRIBUTION WIDTH 14.2 % (11.5-14.5); WHITE BLOOD COUNT 9.2 K/mm3 (4.8-10.8)
[2023-08-01 09:16] LABS: ALBUMIN 2.6 g/dL (3.5-5.0); POTASSIUM 4.3 mmol/L (3.5-5.1); SODIUM 134 mmol/L (136-145)
[2023-08-01 09:19] LABS: CALCIUM 8.7 mg/dL (8.3-10.5)
[2023-08-01 09:20] LABS: CARBON DIOXIDE 22 mmol/L (22-29); TOTAL PROTEIN 6.5 g/dL (6.4-8.3)
[2023-08-01 09:21] LABS: TOTAL BILIRUBIN 0.6 mg/dL (0.2-1.2)
[2023-08-01 09:24] LABS: AST-SGOT 47 U/L (5-34)
[2023-08-01 09:25] LABS: ALT/SGPT 26 U/L (0-55); GLUCOSE 60 mg/dL (75-110)
[2023-08-01 09:43] LABS: TROPONIN-I < 0.030 ng/mL (<0.030)
[2023-08-01] MEDS ORDERED: XANAX 1MG1 MG PO (10:19)
[2023-08-01] MEDS ORDERED: TOPICORT60 GM TP (10:22)
[2023-08-01] MEDS ORDERED: [UNRECOGNIZED DRUG - CODE] (10:23)
[2023-08-01] MEDS ORDERED: MORPHINE SULFAT15 M7 PO (10:24)
[2023-08-01] MEDS ORDERED: JARDIANCE10 MG PO (10:25)
[2023-08-01] MEDS ORDERED: BD ULTRA-FINE I1 DE4 (10:25)
[2023-08-01] MEDS ORDERED: FAMOTIDINE20 MG PO (10:27)
[2023-08-01] MEDS ORDERED: INSULIN AS100 UNIT/3 SQ (10:29)
[2023-08-01] MEDS ORDERED: LOSARTAN POTASS25 MG PO (10:31)
[2023-08-01] MEDS ORDERED: KERENDIA10 MG PO (10:31)
[2023-08-01] MEDS ORDERED: CORTISPORIN OTI10 ML OT (10:33)
[2023-08-01] MEDS ORDERED: MAGNESIUM100 MG PO (10:33)
[2023-08-01 10:34] LABS: BAND 2 % (0-10); LYMPHOCYTE 21 % (20-51)
[2023-08-01 10:35] LABS: MONOCYTE 14 % (3-10); NEUTROPHILS 60 % (42-75)
[2023-08-01] MEDS ORDERED: VARENICLINE TART1 MG PO (10:35)
[2023-08-01 16:20] VITALS: BP 122/69
== END 2023-08-01 16:33 | disposition home or self-care (01) ==
LOC: ED 08:34
PROVIDERS: Nurse Practitioner Family
DX: E11.649 Type 2 diabetes mellitus with hypoglycemia without coma (principal); K86.1 Other chronic pancreatitis; F17.210 Nicotine dependence, cigarettes, uncomplicated; Z79.4 Long term (current) use of insulin
CPT/HCPCS: J1610; J2405; J7042

== ENCOUNTER 2023-08-25 14:37 | Emergency (ER) | payer BC ==
[~2023-08-25] VITALS: Ht 188 cm; Wt 102.7 kg
[~2023-08-25 14:37] MED LIST changes: +BD ULTRA-FINE I1 DE4; +CORTISPORIN OTI10 ML OT; +FAMOTIDINE20 MG PO; +INSULIN AS100 UNIT/3 SQ; +JARDIANCE10 MG PO; +KERENDIA10 MG PO; +LOSARTAN POTASS25 MG PO; +MAGNESIUM100 MG PO; +MORPHINE SULFAT15 M7 PO; +TOPICORT60 GM TP; +VARENICLINE TART1 MG PO; +[UNRECOGNIZED DRUG - CODE]
[2023-08-25 15:25] LABS: BASO # 0.11 K/mm3 (0.02-0.10); EOS # 0.29 K/mm3 (0.04-0.40); EOS % 3.2 % (0.0-4.0); HEMOGLOBIN 14.5 g/dL (13.5-18.0); LYMPH# 3.46 K/mm3 (1.50-4.00); MEAN CELL VOLUME 96 fl (78-100); MEAN CORPUSCULAR HEMOGLOBIN 31 pg (27-31); MEAN CORPUSCULAR HGB CONC 32 g/dL (33-37); MEAN PLATELET VOLUME 11.2 fl (7.4-10.4); MONO # 0.62 K/mm3 (0.20-0.80); NEU # 4.54 K/mm3 (1.40-6.50); PLATELET COUNT 307 K/mm3 (130-400); RED BLOOD COUNT 4.67 M/mm3 (4.20-5.60); RED CELL DISTRIBUTION WIDTH 13.7 % (11.5-14.5); WHITE BLOOD COUNT 9.1 K/mm3 (4.8-10.8)
[2023-08-25 15:30] LABS: ALBUMIN 3.4 g/dL (3.5-5.0); POTASSIUM 3.7 mmol/L (3.5-5.1); SODIUM 138 mmol/L (136-145)
[2023-08-25 15:31] LABS: CALCIUM 10.3 mg/dL (8.3-10.5)
[2023-08-25 15:32] LABS: GLUCOSE 183 mg/dL (75-110)
[2023-08-25 15:33] LABS: TOTAL PROTEIN 8.3 g/dL (6.4-8.3)
[2023-08-25 15:34] LABS: CARBON DIOXIDE 22 mmol/L (22-29); TOTAL BILIRUBIN 0.4 mg/dL (0.2-1.2)
[2023-08-25 15:38] LABS: AST-SGOT 27 U/L (5-34)
[2023-08-25 15:39] LABS: ALT/SGPT 21 U/L (0-55)
[2023-08-25 15:40] LABS: LIPASE 37 U/L (8-78)
[2023-08-25 15:54] LABS: TROPONIN-I < 0.030 ng/mL (<0.030)
[2023-08-25 17:45] LABS: D-DIMER 1.4 mg/L FEU (0.15-0.50)
[2023-08-25 18:30] VITALS: BP 127/66
[2023-08-26 01:17] LABS: PROCALCITONIN 0.31 ng/mL (0.00-0.09)
== END 2023-08-25 18:45 | disposition home or self-care (01) ==
LOC: ED 14:37
PROVIDERS: Nurse Practitioner Family
DX: I95.9 Hypotension, unspecified (principal); E86.0 Dehydration; G89.29 Other chronic pain; N17.9 Acute kidney failure, unspecified; Z28.310 Unvaccinated for COVID-19
CPT/HCPCS: J1170; J2270; J2405; J7030

== ENCOUNTER 2023-08-25 19:40 | Emergency (ER) | payer BC ==
[~2023-08-25] VITALS: Wt 102.5 kg
[2023-08-25 20:33] LABS: BASO # 0.07 K/mm3 (0.02-0.10); EOS # 0.24 K/mm3 (0.04-0.40); EOS % 2.4 % (0.0-4.0); HEMATOCRIT 39.5 % (42.0-52.0); HEMOGLOBIN 12.6 g/dL (13.5-18.0); LYMPH# 1.63 K/mm3 (1.50-4.00); MEAN CELL VOLUME 97 fl (78-100); MEAN CORPUSCULAR HEMOGLOBIN 31 pg (27-31); MEAN CORPUSCULAR HGB CONC 32 g/dL (33-37); MEAN PLATELET VOLUME 10.7 fl (7.4-10.4); MONO # 1.06 K/mm3 (0.20-0.80); NEU # 7.12 K/mm3 (1.40-6.50); PLATELET COUNT 262 K/mm3 (130-400); RED BLOOD COUNT 4.06 M/mm3 (4.20-5.60); RED CELL DISTRIBUTION WIDTH 13.8 % (11.5-14.5); WHITE BLOOD COUNT 10.2 K/mm3 (4.8-10.8)
[2023-08-25 20:41] LABS: ALBUMIN 2.7 g/dL (3.5-5.0); POTASSIUM 3.9 mmol/L (3.5-5.1); SODIUM 138 mmol/L (136-145)
[2023-08-25 20:43] LABS: CALCIUM 8.9 mg/dL (8.3-10.5)
[2023-08-25 20:44] LABS: GLUCOSE 104 mg/dL (75-110); TOTAL PROTEIN 6.7 g/dL (6.4-8.3)
[2023-08-25 20:45] LABS: CARBON DIOXIDE 25 mmol/L (22-29)
[2023-08-25 20:46] LABS: TOTAL BILIRUBIN 0.4 mg/dL (0.2-1.2)
[2023-08-25 20:49] LABS: AST-SGOT 27 U/L (5-34)
[2023-08-25 20:50] LABS: ALT/SGPT 19 U/L (0-55)
[2023-08-25 20:51] LABS: MAGNESIUM 2.79 mg/dL (1.60-2.60)
[2023-08-25 21:23] LABS: TROPONIN-I < 0.030 ng/mL (<0.030)
[2023-08-25 21:32] LABS: URINE WBC 0 /hpf (0-3)
[2023-08-25 21:44] LABS: URINE APPEARANCE CLEAR; URINE BILIRUBIN NEGATIVE (NEGATIVE); URINE BLOOD NEGATIVE (NEGATIVE); URINE COLOR YELLOW; URINE KETONE NEGATIVE (NEGATIVE); URINE LEUKOCYTE ESTERASE NEGATIVE (NEGATIVE); URINE MUCUS PRESENT (NOT PRESENT); URINE NITRATE NEGATIVE (NEGATIVE); URINE PROTEIN(semi-quant) 2+ (NEGATIVE); URINE UROBILINOGEN NORMAL (NORMAL)
[2023-08-25 22:26] VITALS: BP 89/54
== END 2023-08-25 22:26 | disposition short-term general hospital (02) ==
LOC: ED 19:40
PROVIDERS: Physician Assistant
DX: E11.649 Type 2 diabetes mellitus with hypoglycemia without coma (principal); N17.9 Acute kidney failure, unspecified; K85.90 Acute pancreatitis without necrosis or infection, unspecified; G93.41 Metabolic encephalopathy; R53.1 Weakness; Z98.890 Other specified postprocedural states

== ENCOUNTER 2024-08-26 20:41 | Emergency (ER) | payer BC ==
[~2024-08-26 20:41] MED LIST changes: +AFREZZA12 UNIT IH; +CEFPODOXIME PR200 M1 PO; +COMFORT POINT I1 DEV SQ; +DEXCOM G7 SENS1 EACH MC; +GVOKE SYRI1 MG/0.2 M IM; +LEXAPRO5 MG PO
[2024-08-26] MEDS ORDERED: DILAUDID 2MG TAB2 MG (21:07)
[2024-08-26] MEDS ORDERED: BUMEX 1MG TA1 MG/TA1 PO (21:07)
[2024-08-26] MEDS ORDERED: ROSUVASTATIN CAL5 MG PO (21:08)
[2024-08-26] MEDS ORDERED: HYDROmorphone 0.5 MG/0.5 ML SYRINGE IV ONE (22:00)
[2024-08-26 22:08] LABS: BASO # 0.08 K/mm3 (0.02-0.10); EOS % 1.1 % (0.0-4.0); HEMATOCRIT 42.7 % (42.0-52.0); HEMOGLOBIN 14.1 g/dL (13.5-18.0); LYMPH# 1.74 K/mm3 (1.50-4.00); MEAN CELL VOLUME 96 fl (78-100); MEAN CORPUSCULAR HEMOGLOBIN 32 pg (27-31); MEAN CORPUSCULAR HGB CONC 33 g/dL (33-37); MEAN PLATELET VOLUME 10.7 fl (7.4-10.4); MONO # 1.46 K/mm3 (0.20-0.80); NEU # 14.38 K/mm3 (1.40-6.50); PLATELET COUNT 285 K/mm3 (130-400); RED BLOOD COUNT 4.46 M/mm3 (4.20-5.60); RED CELL DISTRIBUTION WIDTH 14.5 % (11.5-14.5)
[2024-08-26 22:15] LABS: ALBUMIN 2.9 g/dL (3.5-5.0)
[2024-08-26 22:18] LABS: TOTAL PROTEIN 6.9 g/dL (6.4-8.3)
[2024-08-26 22:20] LABS: TOTAL BILIRUBIN 1.1 mg/dL (0.2-1.2)
[2024-08-26 22:49] LABS: D-DIMER 2.58 mg/L FEU (0.15-0.50)
[2024-08-26] MEDS ORDERED: Acetaminophen 500 MG TAB PO ONE (23:15)
[2024-08-26] MEDS ORDERED: Piperacillin/Tazobactam Sodium 4.5 GM in Water For Injection,Sterile 20 ML IV ONE (23:15)
[2024-08-26] MEDS ORDERED: Heparin 5,000 UNITS/ML 1 ML VIAL SQ ONE (23:30)
[2024-08-26] MEDS ORDERED: NS 1,000 ML IV SCH (23:45)
[2024-08-27] MEDS ORDERED: Insulin Human Regular (NovoLIN R) IV ONE (00:15)
[2024-08-27] MEDS ORDERED: HYDROmorphone 0.5 MG/0.5 ML SYRINGE IV ONE ×2 (00:30→03:00)
[2024-08-27] MEDS ORDERED: Carvedilol 6.25 MG TAB PO ONE (00:45)
[2024-08-27] MEDS ORDERED: NS 1,000 ML IV SCH (02:45)
[2024-08-27 03:38] VITALS: BP 128/72
== END 2024-08-27 03:38 | disposition short-term general hospital (02) ==
LOC: ED 20:41
PROVIDERS: Family Medicine
DX: A41.9 Sepsis, unspecified organism (principal); K52.9 Noninfective gastroenteritis and colitis, unspecified; E87.5 Hyperkalemia; E11.22 Type 2 diabetes mellitus with diabetic chronic kidney disease; I12.9 Hypertensive chronic kidney disease with stage 1 through stage 4 chronic kidney disease, or unspecified chronic kidney disease; N18.9 Chronic kidney disease, unspecified; R74.01 Elevation of levels of liver transaminase levels; R79.89 Other specified abnormal findings of blood chemistry; F17.200 Nicotine dependence, unspecified, uncomplicated; Z90.49 Acquired absence of other specified parts of digestive tract; Z79.4 Long term (current) use of insulin
CPT/HCPCS: J1171; J1644; J1815; J2543; J7030; J7120

== ENCOUNTER → 2024-09-21 | Outpatient (CLI) | payer BC ==
[~2024-09-21] MED LIST changes: +BUMEX 1MG TA1 MG/TA1 PO; +DILAUDID 2MG TAB2 MG; +ROSUVASTATIN CAL5 MG PO
== END ==
LOC: RAD 14:29
DX: K59.00 Constipation, unspecified (principal); R63.0 Anorexia

== ENCOUNTER 2024-09-23 18:38 | Emergency (ER) | payer BC ==
[~2024-09-23] VITALS: Ht 185.4 cm; Wt 103.5 kg
[2024-09-23] MEDS ORDERED: Ondansetron 4 MG/2 ML VIAL IV ONE ×2 (19:15→21:30)
[2024-09-23 19:23] LABS: HEMATOCRIT 39.4 % (42.0-52.0); HEMOGLOBIN 13.2 g/dL (13.5-18.0); MEAN CELL VOLUME 96 fl (78-100); MEAN CORPUSCULAR HEMOGLOBIN 32 pg (27-31); MEAN CORPUSCULAR HGB CONC 34 g/dL (33-37); MEAN PLATELET VOLUME 10.1 fl (7.4-10.4); PLATELET COUNT 299 K/mm3 (130-400); RED BLOOD COUNT 4.12 M/mm3 (4.20-5.60); RED CELL DISTRIBUTION WIDTH 13.2 % (11.5-14.5); WHITE BLOOD COUNT 14.7 K/mm3 (4.8-10.8)
[2024-09-23] MEDS ORDERED: Dextrose 50% Water 25 GM/50 ML SYRINGE IV ONE ×2 (19:30→20:00)
[2024-09-23] MEDS ORDERED: HYDROmorphone 0.5 MG/0.5 ML SYRINGE IV ONE ×2 (19:30→21:30)
[2024-09-23 19:31] LABS: CALCIUM 9.6 mg/dL (8.3-10.5)
[2024-09-23 19:32] LABS: TOTAL PROTEIN 6.9 g/dL (6.4-8.3)
[2024-09-23 19:34] LABS: TOTAL BILIRUBIN 0.6 mg/dL (0.2-1.2)
[2024-09-23] MEDS ORDERED: NS 1,000 ML IV SCH (20:00)
[2024-09-23 20:19] LABS: LYMPHOCYTE 19 % (20-51); MONOCYTE 11 % (3-10); NEUTROPHILS 66 % (42-75)
[2024-09-23 20:20] LABS: METAMYELOCYTE 1 % (0-0)
[2024-09-23] MEDS ORDERED: HYDROmorphone 2 MG TAB PO ONE (21:30)
[2024-09-23 22:16] VITALS: BP 156/88
== END 2024-09-23 22:17 | disposition home or self-care (01) ==
LOC: ED 18:38
PROVIDERS: Nurse Practitioner
DX: G89.29 Other chronic pain (principal); M54.9 Dorsalgia, unspecified; E11.649 Type 2 diabetes mellitus with hypoglycemia without coma; Z79.4 Long term (current) use of insulin
CPT/HCPCS: J1171; J2405; J7030

== ENCOUNTER 2024-12-03 16:11 | Emergency (ER) | payer BC ==
[~2024-12-03] VITALS: Ht 185.4 cm; Wt 101.2 kg
[2024-12-03] MEDS ORDERED: Dextrose 50% Water 25 GM/50 ML SYRINGE IV ONE (16:30)
[2024-12-03 16:58] LABS: HEMATOCRIT 45.6 % (42.0-52.0); HEMOGLOBIN 14.7 g/dL (13.5-18.0); MEAN CELL VOLUME 97 fl (78-100); MEAN CORPUSCULAR HEMOGLOBIN 31 pg (27-31); MEAN CORPUSCULAR HGB CONC 32 g/dL (33-37); MEAN PLATELET VOLUME 10.7 fl (7.4-10.4); RED BLOOD COUNT 4.69 M/mm3 (4.20-5.60)
[2024-12-03 17:06] LABS: ALBUMIN 3.1 g/dL (3.5-5.0)
[2024-12-03 17:07] LABS: CALCIUM 9.2 mg/dL (8.3-10.5)
[2024-12-03 17:09] LABS: TOTAL PROTEIN 7.8 g/dL (6.4-8.3)
[2024-12-03 17:10] LABS: TOTAL BILIRUBIN 0.6 mg/dL (0.2-1.2)
[2024-12-03] MEDS ORDERED: D5W 250 ML IV SCH (17:15)
[2024-12-03] MEDS ORDERED: HYDROmorphone 0.5 MG/0.5 ML SYRINGE IV ONE ×4 (17:15→23:00)
[2024-12-03 17:39] LABS: LYMPHOCYTE 5 % (20-51); MONOCYTE 6 % (3-10); NEUTROPHILS 88 % (42-75)
[2024-12-03 17:42] LABS: PLATELET COUNT 424 K/mm3 (130-400)
[2024-12-03] MEDS ORDERED: D5LR 1,000 ML IV SCH (17:45)
[2024-12-03] MEDS ORDERED: Piperacillin/Tazobactam Sodium 4.5 GM in NS 100 ML IV ONE (19:00)
[2024-12-03] MEDS ORDERED: Ondansetron 4 MG/2 ML VIAL IV ONE (20:30)
[2024-12-03] MEDS ORDERED: Metoprolol Tartrate 1 MG/ML 5 ML VIAL IV ONE (21:30)
[2024-12-04 01:07] VITALS: BP 168/69
== END 2024-12-04 00:30 | disposition short-term general hospital (02) ==
LOC: ED 16:11
PROVIDERS: Family Medicine
DX: R10.9 Unspecified abdominal pain (principal); R19.7 Diarrhea, unspecified; E16.2 Hypoglycemia, unspecified; D72.829 Elevated white blood cell count, unspecified; R11.2 Nausea with vomiting, unspecified
CPT/HCPCS: J1171; J2405; J2543; J7060

== ENCOUNTER 2024-12-16 16:46 | Emergency (ER) | payer BC ==
[2024-12-16 17:57] LABS: BASO # 0.07 K/mm3 (0.02-0.10); EOS # 0.23 K/mm3 (0.04-0.40); EOS % 2.5 % (0.0-4.0); HEMOGLOBIN 12.7 g/dL (13.5-18.0); LYMPH# 1.46 K/mm3 (1.50-4.00); MEAN CELL VOLUME 94 fl (78-100); MEAN CORPUSCULAR HEMOGLOBIN 31 pg (27-31); MEAN CORPUSCULAR HGB CONC 33 g/dL (33-37); MEAN PLATELET VOLUME 11.5 fl (7.4-10.4); MONO # 0.82 K/mm3 (0.20-0.80); NEU # 6.74 K/mm3 (1.40-6.50); PLATELET COUNT 279 K/mm3 (130-400); RED BLOOD COUNT 4.04 M/mm3 (4.20-5.60); RED CELL DISTRIBUTION WIDTH 13.5 % (11.5-14.5); WHITE BLOOD COUNT 9.4 K/mm3 (4.8-10.8)
[2024-12-16 18:02] LABS: ALBUMIN 2.7 g/dL (3.5-5.0); SODIUM 137 mmol/L (136-145)
[2024-12-16] MEDS ORDERED: FLUTICASONE P15.8 ML NS (18:03)
[2024-12-16 18:04] LABS: CALCIUM 9.3 mg/dL (8.3-10.5)
[2024-12-16 18:05] LABS: GLUCOSE 246 mg/dL (75-110); TOTAL PROTEIN 6.9 g/dL (6.4-8.3)
[2024-12-16] MEDS ORDERED: GVOKE HYPO1 MG/0.21 SQ (18:05)
[2024-12-16 18:06] LABS: CARBON DIOXIDE 19 mmol/L (22-29)
[2024-12-16 18:07] LABS: TOTAL BILIRUBIN 0.5 mg/dL (0.2-1.2)
[2024-12-16] MEDS ORDERED: LACTULOSE SYRUP1 ML (18:07)
[2024-12-16 18:08] LABS: ALCOHOL IN-HOUSE < 10 mg/dL (<10)
[2024-12-16 18:10] LABS: AST-SGOT 23 U/L (5-34)
[2024-12-16] MEDS ORDERED: ONDANSETRON HYDR4 MG PO (18:11)
[2024-12-16 18:12] LABS: ALT/SGPT 12 U/L (0-55); LIPASE 29 U/L (8-78)
[2024-12-16] MEDS ORDERED: NS 1,000 ML IV SCH (18:30)
[2024-12-16] MEDS ORDERED: NS & 20mEq KCl 1,000 ML IV SCH (19:45)
[2024-12-16] MEDS ORDERED: Ondansetron 4 MG/2 ML VIAL IV ONE ×2 (20:00→23:15)
[2024-12-16] MEDS ORDERED: D5NS 1,000 ML IV SCH (20:45)
[2024-12-17 00:07] LABS: ALBUMIN 2.5 g/dL (3.5-5.0)
[2024-12-17 00:09] LABS: CALCIUM 8.6 mg/dL (8.3-10.5)
[2024-12-17 00:10] LABS: TOTAL PROTEIN 6.4 g/dL (6.4-8.3)
[2024-12-17 00:12] LABS: TOTAL BILIRUBIN 0.5 mg/dL (0.2-1.2)
[2024-12-17 00:13] LABS: BASO # 0.06 K/mm3 (0.02-0.10); EOS # 0.42 K/mm3 (0.04-0.40); EOS % 4.1 % (0.0-4.0); HEMATOCRIT 35.8 % (42.0-52.0); HEMOGLOBIN 11.9 g/dL (13.5-18.0); LYMPH# 2.09 K/mm3 (1.50-4.00); MEAN CELL VOLUME 95 fl (78-100); MEAN CORPUSCULAR HEMOGLOBIN 32 pg (27-31); MEAN CORPUSCULAR HGB CONC 33 g/dL (33-37); MEAN PLATELET VOLUME 11.5 fl (7.4-10.4); MONO # 1.23 K/mm3 (0.20-0.80); NEU # 6.51 K/mm3 (1.40-6.50); PLATELET COUNT 299 K/mm3 (130-400); RED BLOOD COUNT 3.77 M/mm3 (4.20-5.60); RED CELL DISTRIBUTION WIDTH 13.7 % (11.5-14.5); WHITE BLOOD COUNT 10.4 K/mm3 (4.8-10.8)
[2024-12-17] MEDS ORDERED: Carvedilol 6.25 MG TAB PO ONE (00:45)
[2024-12-17] MEDS ORDERED: hydrALAZINE 25 MG TAB PO ONE (00:45)
[2024-12-17] MEDS ORDERED: Morphine 4 MG/ML VIAL IV ONE (02:00)
[2024-12-17 05:02] LABS: BASO # 0.06 K/mm3 (0.02-0.10); EOS # 0.36 K/mm3 (0.04-0.40); EOS % 2.9 % (0.0-4.0); HEMATOCRIT 37.5 % (42.0-52.0); HEMOGLOBIN 12.1 g/dL (13.5-18.0); LYMPH# 2.05 K/mm3 (1.50-4.00); MEAN CELL VOLUME 96 fl (78-100); MEAN CORPUSCULAR HEMOGLOBIN 31 pg (27-31); MEAN CORPUSCULAR HGB CONC 32 g/dL (33-37); MEAN PLATELET VOLUME 11.4 fl (7.4-10.4); MONO # 1.46 K/mm3 (0.20-0.80); NEU # 8.28 K/mm3 (1.40-6.50); PLATELET COUNT 280 K/mm3 (130-400); RED CELL DISTRIBUTION WIDTH 13.9 % (11.5-14.5); WHITE BLOOD COUNT 12.3 K/mm3 (4.8-10.8)
[2024-12-17 05:07] LABS: ALBUMIN 2.4 g/dL (3.5-5.0)
[2024-12-17 05:09] LABS: CALCIUM 8.3 mg/dL (8.3-10.5)
[2024-12-17 05:10] LABS: TOTAL PROTEIN 6.4 g/dL (6.4-8.3)
[2024-12-17 05:12] LABS: TOTAL BILIRUBIN 0.5 mg/dL (0.2-1.2)
[2024-12-17 06:45] VITALS: BP 186/94
[2024-12-17 07:43] LABS: PH-URINE 5.5 (5.0 - 8.0); URINE APPEARANCE SLIGHTLY CLOUDY (CLEAR); URINE COLOR YELLOW (YELLOW); URINE PROTEIN(semi-quant) 3+ (NEGATIVE)
[2024-12-17 07:44] LABS: URINE BILIRUBIN NEGATIVE (NEGATIVE); URINE BLOOD TRACE-INTACT (NEGATIVE); URINE GLUCOSE 1+ (NEGATIVE); URINE KETONE NEGATIVE (NEGATIVE); URINE LEUKOCYTE ESTERASE NEGATIVE (NEGATIVE); URINE NITRATE NEGATIVE (NEGATIVE)
[2024-12-17 07:45] LABS: URINE MUCUS PRESENT (NOT PRESENT)
== END 2024-12-17 07:03 | disposition home or self-care (01) ==
LOC: ED 16:46
PROVIDERS: Nurse Practitioner
DX: E11.10 Type 2 diabetes mellitus with ketoacidosis without coma (principal); I12.9 Hypertensive chronic kidney disease with stage 1 through stage 4 chronic kidney disease, or unspecified chronic kidney disease; E11.22 Type 2 diabetes mellitus with diabetic chronic kidney disease; N18.9 Chronic kidney disease, unspecified; E86.0 Dehydration; Z95.5 Presence of coronary angioplasty implant and graft; Z79.4 Long term (current) use of insulin
CPT/HCPCS: J2270; J2405; J3480; J7030; J7042

== ENCOUNTER 2025-01-14 11:19 | Emergency (ER) | payer BC ==
[~2025-01-14] VITALS: Ht 182.9 cm; Wt 109.5 kg
[~2025-01-14 11:19] MED LIST changes: +FLUTICASONE P15.8 ML NS; +GVOKE HYPO1 MG/0.21 SQ; +LACTULOSE SYRUP1 ML; +ONDANSETRON HYDR4 MG PO
[2025-01-14] MEDS ORDERED: Bumetanide 1 MG/4 ML VIAL IV ONE (11:45)
[2025-01-14 11:57] LABS: BASO # 0.05 K/mm3 (0.02-0.10); EOS # 0.37 K/mm3 (0.04-0.40); HEMATOCRIT 31.2 % (42.0-52.0); HEMOGLOBIN 9.9 g/dL (13.5-18.0); MEAN CELL VOLUME 99 fl (78-100); MEAN CORPUSCULAR HEMOGLOBIN 32 pg (27-31); MEAN CORPUSCULAR HGB CONC 32 g/dL (33-37); MONO # 1.37 K/mm3 (0.20-0.80); NEU # 5.92 K/mm3 (1.40-6.50); PLATELET COUNT 242 K/mm3 (130-400); RED BLOOD COUNT 3.14 M/mm3 (4.20-5.60); RED CELL DISTRIBUTION WIDTH 15.7 % (11.5-14.5); WHITE BLOOD COUNT 9.3 K/mm3 (4.8-10.8)
[2025-01-14] MEDS ORDERED: Morphine 4 MG/ML VIAL IV ONE ×4 (12:00→15:20)
[2025-01-14] MEDS ORDERED: Ondansetron 4 MG/2 ML VIAL IV ONE (12:00)
[2025-01-14 12:03] LABS: ALBUMIN 2.4 g/dL (3.5-5.0)
[2025-01-14 12:04] LABS: CALCIUM 8.6 mg/dL (8.3-10.5)
[2025-01-14 12:06] LABS: TOTAL PROTEIN 6.2 g/dL (6.4-8.3)
[2025-01-14 12:07] LABS: TOTAL BILIRUBIN 0.4 mg/dL (0.2-1.2)
[2025-01-14] MEDS ORDERED: Amoxicillin/Clavulanate K+ 875/125 MG TAB PO ONE (14:30)
[2025-01-14] MEDS ORDERED: AMOXICILLIN AND1 TA2 PO (14:40)
[2025-01-14 15:57] VITALS: BP 135/68
== END 2025-01-14 15:58 | disposition home or self-care (01) ==
LOC: ED 11:19
PROVIDERS: Family Medicine
DX: M10.9 Gout, unspecified (principal); L03.116 Cellulitis of left lower limb; L03.115 Cellulitis of right lower limb; E66.9 Obesity, unspecified; Z89.421 Acquired absence of other right toe(s); Z89.422 Acquired absence of other left toe(s); Z95.5 Presence of coronary angioplasty implant and graft; Z87.891 Personal history of nicotine dependence; Z68.32 Body mass index [BMI] 32.0-32.9, adult; Z88.1 Allergy status to other antibiotic agents
CPT/HCPCS: J2270; J2405